=== PATIENT | female | born 1995 | race Caucasian/White ===

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

== ENCOUNTER → 2017-07-08 | Outpatient (CLI) | payer OTHER | END | disposition home or self-care (01) | LOC: C.LABSPEC 17:45 | PROVIDERS: ATTEND Physician Assistant | DX: Z01.419 Encounter for gynecological examination (general) (routine) without abnormal findings (principal) ==

== ENCOUNTER 2022-11-21 22:36 | Inpatient (IN) ==
[2022-11-21] MEDS ORDERED: OXYTOCIN 30 UNITS/500 ML BAG IV PRN (23:26)
[2022-11-21] MEDS ORDERED: LIDOCAINE 1% LOCAL 20 ML VIAL INFIL PRN (23:26)
[2022-11-21] MEDS: LACTATED RINGER'S 1,000 ML IV PRN (23:51)
[2022-11-22 00:13] LABS: Hematocrit (blood only) 34.7 % (37.0-47.0); Hemoglobin 11.8 g/dl (12.0-16.0); Mean Corpuscular Hemoglobin 30.1 pg (25.0-34.0); Mean Corpuscular Volume 88.5 fL (80.0-100.0); Platelet Count 211 K/uL (130-400); RDW Coefficient of Variation 12.7 % (11.5-14.5); RDW Standard Deviation 40.7 fL (36.4-46.3); Red Blood Count 3.92 M/uL (4.20-5.40); White Blood Count 9.07 K/ul (4.8-10.8)
[2022-11-22] MEDS ORDERED: OXYTOCIN 30 UNITS/500 ML BAG IV PRN ×2 (03:15→20:19)
[2022-11-22] MEDS: LACTATED RINGER'S 1,000 ML IV PRN ×3 (06:59→12:31)
[2022-11-22] MEDS ORDERED: LIDOCAINE 2%/EPINEPHRINE 1:200,000 20 ML PF ONE (07:18)
[2022-11-22] MEDS ORDERED: ePHEDrine sulfate 50 MG/ML AMP ONE (07:18)
[2022-11-22] MEDS ORDERED: SODIUM CHLORIDE 0.9% PF INJ 10 ML VIAL ONE (07:18)
[2022-11-22] MEDS ORDERED: fentaNYL citrate PF 100 MCG/2 ML VIAL ONE (07:18)
[2022-11-22] MEDS ORDERED: BUPIVACAINE 0.25% PF 30 ML VIAL ONE (07:18)
[2022-11-22] MEDS ORDERED: fentaNYL 2MCG/ML ROPIVACAINE 1.25MG/ML 100 ML BAG EPI ONE (07:19)
--- NOTE | 2022-11-22 07:40 | Anesthesiology Consultation ---
Date of Service November 22, 2022 Assessment & Plan Chart Review Chart Review: Acceptable Risk for Surgery, Patient NOT seen in Pre Admission Testing and Acceptable Risk for Labor Epidural Consults Requested none ASA ASA3 Proposed Anesthesia Anesthesia Type: Labor Epidural and CSE History Height/Weight Height: 5 ft 4 in Weight: 107.048 kg Allergies Allergy/AdvReac Type Severity Reaction Status Date / Time No Known Allergies Allergy Unknown Verified 11/20/22 14:00 Medications Home Medications Medication Instructions Recorded Confirmed Last Taken prenat.vits,pippa,trk-[id number] 1 tab PO DAILY 02/12/21 11/21/22 11/21/22 20:00 acetone (urine) test (Ketone Urine #50 ea 09/28/22 11/20/22 Unknown Test strips) blood sugar diagnostic (OneTouch #150 ea 09/28/22 11/20/22 Unknown Verio test strips) blood-glucose meter (OneTouch #1 ea 09/28/22 11/20/22 Unknown Verio Reflect Meter) lancets 33 gauge (OneTouch Delica #150 ea 09/28/22 11/20/22 Unknown Lancets) Breast Pump #1 ea 10/26/22 11/20/22 Unknown Active Medications Generic Name Dose Route Start Last Admin Trade Name Freq PRN Reason Stop Dose Admin Lactated Ringer's 1,000 mls @ 125 mls/hr 11/21/22 23:26 11/22/22 06:59 Lr IV 11/23/22 23:25 999 mls/hr .Q8H PRN Administration L&D Protocol Protocol Oxytocin 30 units in 500 mls @ 8 mls/hr 11/22/22 03:15 11/22/22 06:59 Pitocin IV 11/24/22 03:14 0.48 units/hr .Q24H PRN 8 mls/hr Labor Induction/Augmentation Titration Protocol 0.48 UNITS/HR Past Medical History Medical History Arm fracture 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 Infertility, female Conceived on clomid with current Lyme disease SAB (spontaneous ) x2 2020 Varicella vaccination Gestational DM;anemia;Morbid obesity;HLD;migraine H/A's Exercise / Class Metabolic Activity II 4-5 Yardwork/Stairs/Walk up hill Past Family History Family History Father Diabetes Hypercholesteremia Hypertension Mother Asthma Crohn's disease Denies family history of Ovarian cancer Prostate cancer Myocardial infarction Breast cancer Colorectal cancer Past Surgical History Surgical History History of tooth extraction WISDOM TEETH S/P colonoscopy Past Anesthesia History No Hx of Anesthesia Complications and No Family Hx of Anesthesia Complications History of PONV No Hx of PONV and No Hx of Motion Sickness Social History Smoking Status: Never smoker Do You Dip or Chew Tobacco: No Hx Alcohol Use: No Alcohol type: wine alcohol intake frequency: holidays/special occasions only Hx Substance Use: No Physical Exam Vital Signs Last Vital Signs Temp 36.5 C 11/22/22 07:26 Pulse 92 H 11/22/22 07:37 Resp 20 11/22/22 07:26 BP 130/79 11/22/22 07:26 Pulse Ox 100 11/22/22 07:37 Testing Laboratory Results 11/21/22 23:44 Blood Type B Positive 11/21/22 23:44 Antibody Screen NEGATIVE 11/21/22 23:44 11/21/22 23:46 POC Glucose 90
[2022-11-22] MEDS ORDERED: NALBUPHINE HCL INJ 10 MG/ML AMP IV PRN (08:45)
[2022-11-22] MEDS ORDERED: SODIUM CHLORIDE 0.9% PF INJ 10 ML VIAL EPI STA (08:45)
[2022-11-22] MEDS ORDERED: BUPIVACAINE 0.25% PF 30 ML VIAL EPI STA (08:45)
[2022-11-22] MEDS ORDERED: LIDOCAINE 2% MPF LOCAL 5 ML VIAL EPI PRN (08:45)
[2022-11-22] MEDS ORDERED: BUPIVACAINE 0.25% PF 30 ML VIAL EPI PRN (08:45)
[2022-11-22] MEDS ORDERED: ROPIVACAINE 0.5% PF 5 MG/ML 20 ML VIAL EPI PRN (08:45)
[2022-11-22] MEDS ORDERED: LIDOCAINE 2%/EPINEPHRINE 1:200,000 20 ML PF EPI STA (08:45)
[2022-11-22] MEDS ORDERED: diphenhydrAMINE 50 MG/ML VIAL IV PRN (08:45)
[2022-11-22] MEDS ORDERED: SODIUM CHLORIDE 0.9% PF INJ 10 ML VIAL EPI PRN (08:45)
[2022-11-22] MEDS ORDERED: fentaNYL citrate PF 100 MCG/2 ML VIAL EPI STA (08:45)
[2022-11-22] MEDS ORDERED: ePHEDrine sulfate 50 MG/ML AMP IV PRN (08:45)
[2022-11-22] MEDS ORDERED: NALOXONE HCL 0.4 MG/1 ML VIAL/CARP IV PRN (08:45)
[2022-11-22] MEDS ORDERED: NALOXONE HCL 1 MG in SODIUM CHLORIDE 0.9% 1000ML 1,000 ML IV PRN (08:45)
[2022-11-22] MEDS ORDERED: fentaNYL citrate PF 100 MCG/2 ML VIAL EPI PRN (08:45)
--- NOTE | 2022-11-22 09:18 | History & Physical Report ---
Date of Service November 22, 2022 Assessment & Plan (1) Encounter for supervision of normal in multigravida: Plan: Tanna is a 27-year-old G3, P0 currently at 30 weeks 3 days gestational age presents with premature spontaneous rupture of membranes. 1. Fetus Cat 1 2. Labor: Recommend Pitocin at admission. Patient declined but excepted later around 3am 3. GBS negative. 4. Vitals: WNL 5 A1gDM: Stable (2) Gestational diabetes mellitus (GDM) affecting , antepartum: (3) PROM (premature rupture of membranes): Admission and Anticipated Discharge Date Admission Date: November 21, 2022 History of Present Illness Primary Care Provider: Martha Renee MD Tanna is a 27-year-old G3, P0 presents with spontaneous rupture of membranes at 38 weeks 3 days gestational age. Reporting irregular contractions. Denies vaginal bleeding. Good movement. related complication FMHX Congenital Heart Defect * echo-[facility] 08/04/22-Normal ? Cleft Lip on Anatomy *MFM consult - no clelft lip noted MFM f/u US in 3-4 wks. GDM w/28wk glucola *Begin monthly Growth US's Obesity (BMI between 35-39 @ beginning of ) *Growth US @ 32 wks *Weekly NSTs @ 36wks OB Labs: Blood Type B Positive 05/08/22 Antibody Screen NEGATIVE 09/10/22 Hemoglobin 12.0 g/dl (12.0-16.0) 09/10/22 Hematocrit 35.5 % (37.0-47.0) L 09/10/22 Mean Corpuscular Volume 90.1 fL (80.0-100.0) 05/08/22 Platelet Count 282 K/uL (130-400) 05/08/22 Varicella-Zoster IgG Antibody >4000.00 index 11/14/21 Rubella IgG Antibody Immune (Immune) 05/08/22 Rapid Plasma Reagin Nonreactive (Nonreactive) 05/08/22 Hepatitis B Surface Antigen. NON-REACTIVE (NON-REACTIVE) 05/08/22 Hepatitis C Antibody (EIA) NON-REACTIVE (NON-REACTIVE) 05/08/22 HIV (1&2) Ag and Ab Confirmation NON-REACTIVE (NON-REACTIVE) 05/08/22 Glucose 1 Hour 50 gm Load 159 mg/dl (70-130) H 06/19/22 Maternal Serum Alpha Fetoprotein 55.4 ng/mL 07/17/22 OB Optional Labs: Chlamydia trachomatis RNA Not Detected (NotDetected) 05/08/22 Neisseria gonorrhoeae RNA Not Detected (NotDetected) 05/08/22 Thyroid Stimulating Hormone (TSH) 1.015 uIu/ml (0.300-4.500) 09/19/21 Alpha Fetoprotein Triple Screen SEE NOTE 07/17/22 Labs Reviewed: cfdna-low risk--mln Allergies Allergy/AdvReac Type Severity Reaction Status Date / Time No Known Allergies Allergy Unknown Verified 11/20/22 14:00 Home Medications Medication Instructions Recorded Confirmed Type prenat.vits,pippa,qvu-boyx-kfega 1 tab PO DAILY 02/12/21 11/21/22 History acetone (urine) test (Ketone Urine #50 ea 09/28/22 11/20/22 Rx Test strips) blood sugar diagnostic (OneTouch #150 ea 09/28/22 11/20/22 Rx Verio test strips) blood-glucose meter (OneTouch #1 ea 09/28/22 11/20/22 Rx Verio Reflect Meter) lancets 33 gauge (OneTouch Delica #150 ea 09/28/22 11/20/22 Rx Lancets) Breast Pump #1 ea 10/26/22 11/20/22 Rx Patient History Medical History Arm fracture 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 Infertility, female Conceived on clomid with current Lyme disease SAB (spontaneous ) x2 2020 Varicella vaccination Surgical History History of tooth extraction WISDOM TEETH S/P colonoscopy Family History Father Diabetes Hypercholesteremia Hypertension Mother Asthma Crohn's disease Denies family history of Ovarian cancer Prostate cancer Myocardial infarction Breast cancer Colorectal cancer Social History Smoking Status: Never smoker Second Hand Exposure: No; Do You Dip or Chew Tobacco: No; Hx Alcohol Use: No Hx Substance Use: No Preferred Language: Irish Communication Ability: Effective Visual Impairment: No Limitations Hearing Ability: Normal Cork Grinder Required: No Beliefs That Will Affect Care: None marital status: marital status details: Ramon Cuevas (22) [phone] Current Living Situation: Alone and Spouse Current Living Situation Comment: lives with spouse, Dogs and outside farm animals current occupational status: employed 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 Other Information That Helps Us Care for You: No Feels Safe at Home: Yes Safety Concerns: Feels Safe At This Time Childhood Exposure to Second-Hand Smoke: No Diet: regular Diet Comment: Counts calories caffeine: No Dental Care, Regularly: Yes Physical Activity Frequency: Daily Physical Activity Frequency Comment: 45 min, zoomba, cardio, weight lifting Seatbelt Use: always Sunscreen Use: Yes Assistive Devices: None Physical Exam Genitourinary: Manual OB Exam: + cervical dilation 1 cm, + cervical effacement 50%, + station high and + amniotic fluid (SROM) clear OB Exam Monitor Tracing: + external FHT monitor used, + external uterine monitor used, + category I and + normal FHT variability Exam per nurse at admission Results & Data Vital Signs (Past 12 Hours) Vital Signs Temp Pulse Resp BP Pulse Ox 11/22/22 09:05 72 97 11/22/22 09:00 72 97 11/22/22 08:55 112 H 100 11/22/22 08:54 96 H 128/63 93 11/22/22 08:52 99 H 126/64 11/22/22 08:50 88 126/58 L 97 11/22/22 08:48 75 132/61 11/22/22 08:45 71 98 11/22/22 08:46 64 140/66 11/22/22 08:44 75 97/53 L 11/22/22 08:42 85 95/48 L 11/22/22 08:40 95 H 97 11/22/22 08:41 96 H 113/50 L 11/22/22 08:35 101 H 98 11/22/22 08:33 50 L 184/128 H 11/22/22 08:30 104 H 98 11/22/22 08:25 86 97 11/22/22 08:20 113 H 99 11/22/22 08:18 102 H 137/82 11/22/22 08:15 103 H 99 11/22/22 08:13 114 H 160/96 H 11/22/22 08:10 105 H 96 11/22/22 08:08 96 H 140/79 11/22/22 08:05 98 H 99 11/22/22 08:03 96 H 137/81 11/22/22 08:00 91 H 99 11/22/22 07:58 88 129/70 11/22/22 07:55 87 99 11/22/22 07:50 94 H 100 11/22/22 07:42 75 98 11/22/22 07:37 92 H 100 11/22/22 07:32 84 97 11/22/22 07:26 36.5 C 72 20 130/79 11/22/22 07:13 95 H 133/84 11/22/22 06:26 84 115/72 11/22/22 05:15 36.8 C 11/22/22 05:27 75 117/71 11/22/22 04:26 79 109/55 L 11/22/22 03:30 20 11/22/22 03:30 20 11/22/22 03:26 74 100/57 L 11/22/22 02:46 36.8 C 70 18 110/58 L 11/22/22 01:29 36.9 C 11/21/22 23:22 90 122/84 11/21/22 22:50 36.9 C 18 Coding Level of Care Code None Diagnoses Encounter for supervision of normal in multigravida Z34.80 Gestational diabetes mellitus (GDM) affecting , antepartum O24.419 PROM (premature rupture of membranes) O42.90
[2022-11-22] MEDS: fentaNYL 2MCG/ML ROPIVACAINE 1.25MG/ML 100 ML BAG EPI PRN ×3 (12:42→18:26)
[2022-11-22] MEDS ORDERED: Nursing to Pharmacy Communication SCH (12:45)
[2022-11-22] MEDS ORDERED: ONDANSETRON INJ 2 MG/ML 2 ML VIAL IV PRN (16:31)
--- NOTE | 2022-11-22 16:37 | Labor Progress Brief Note ---
Date of Service November 22, 2022 Subjective Reason For Note: Routine Evaluation Assessment & Plan (1) Encounter for supervision of normal in multigravida: Plan: Tanna is a 27-year-old G3, P0 currently at 30 weeks 3 days gestational age presents with premature spontaneous rupture of membranes. 1. Fetus Cat 1 2. Labor: Continue Pitocin. 3. GBS negative. 4. Vitals: WNL 5 A1gDM: Stable (2) Gestational diabetes mellitus (GDM) affecting , antepartum: (3) PROM (premature rupture of membranes): Admission and Anticipated Discharge Date Admission Date: November 21, 2022 Physical Exam Genitourinary: Manual OB Exam: + cervical dilation (8.5), + cervical effacement 100% and + station 0 OB Exam Monitor Tracing: + external FHT monitor used, + external uterine monitor used, + category I and + normal FHT va riability Results & Data Vital Signs (Past 12 Hours) Vital Signs Temp Pulse Resp BP Pulse Ox 11/22/22 12:55 36.9 C 20 11/22/22 16:30 91 H 100 11/22/22 16:26 110 H 138/76 11/22/22 16:25 108 H 100 11/22/22 16:24 128 H 92 11/22/22 16:20 115 H 98 11/22/22 16:15 89 100 11/22/22 16:10 72 99 11/22/22 16:11 70 133/72 11/22/22 16:06 89 92 11/22/22 16:05 70 99 11/22/22 16:00 36.9 C 74 16 99 11/22/22 15:55 73 138/68 100 11/22/22 15:50 81 100 11/22/22 15:45 70 100 11/22/22 15:40 71 140/69 100 11/22/22 15:35 69 100 11/22/22 15:30 75 100 11/22/22 15:26 82 139/72 11/22/22 15:25 77 100 11/22/22 15:23 118 H 93 11/22/22 15:20 74 100 11/22/22 15:15 76 100 11/22/22 15:10 100 11/22/22 15:10 74 11/22/22 15:10 78 110/58 L 11/22/22 15:05 74 100 11/22/22 15:00 72 100 11/22/22 14:55 67 100 11/22/22 14:56 68 105/57 L 11/22/22 14:50 75 100 11/22/22 14:45 91 H 100 11/22/22 14:46 89 91 11/22/22 14:40 100 11/22/22 14:40 80 11/22/22 14:40 69 146/86 H 11/22/22 14:35 79 100 11/22/22 14:30 83 93 11/22/22 14:31 84 94 11/22/22 14:26 82 154/82 H 11/22/22 14:25 87 100 11/22/22 14:20 107 H 100 11/22/22 14:18 94 H 93 11/22/22 14:15 99 11/22/22 14:15 76 11/22/22 14:15 36.8 C 75 20 125/77 11/22/22 14:10 98 11/22/22 14:10 109 H 11/22/22 14:10 101 H 88 L 11/22/22 14:05 85 100 11/22/22 14:00 82 100 11/22/22 13:56 100 H 90 11/22/22 13:55 88 142/77 H 99 11/22/22 13:50 92 H 99 11/22/22 13:48 93 H 93 11/22/22 13:45 81 100 11/22/22 13:40 93 H 99 11/22/22 13:41 88 140/74 11/22/22 13:35 82 100 11/22/22 13:30 98 H 98 11/22/22 13:27 75 122/71 11/22/22 13:25 74 98 11/22/22 13:20 77 99 11/22/22 13:15 91 H 98 11/22/22 13:11 87 146/79 H 11/22/22 13:10 87 99 11/22/22 13:09 103 H 93 11/22/22 13:05 91 H 99 11/22/22 13:00 84 99 11/22/22 12:55 84 99 11/22/22 12:56 86 109/59 L 11/22/22 12:50 91 H 100 11/22/22 12:45 93 H 98 11/22/22 12:41 86 114/67 11/22/22 12:40 85 99 11/22/22 12:35 96 H 98 11/22/22 12:30 105 H 99 11/22/22 12:25 97 11/22/22 12:25 101 H 11/22/22 12:25 90 134/75 11/22/22 12:20 87 99 11/22/22 12:15 91 H 97 11/22/22 12:11 83 131/73 11/22/22 12:10 86 99 11/22/22 12:05 87 98 11/22/22 12:00 37.2 C 100 H 20 98 11/22/22 11:55 100 11/22/22 11:55 83 11/22/22 11:55 78 133/74 11/22/22 11:50 92 H 99 11/22/22 11:45 97 H 99 11/22/22 11:40 103 H 127/70 99 11/22/22 11:35 83 99 11/22/22 11:30 92 H 98 11/22/22 11:25 90 130/75 99 11/22/22 11:20 80 98 11/22/22 11:15 84 99 11/22/22 11:10 88 120/67 98 11/22/22 11:05 73 97 11/22/22 11:00 96 H 99 11/22/22 10:55 100 11/22/22 10:55 84 11/22/22 10:55 86 107/57 L 11/22/22 10:50 89 100 11/22/22 10:45 79 99 11/22/22 10:43 94 H 93 11/22/22 10:42 88 118/58 L 11/22/22 10:40 83 98 11/22/22 10:35 97 H 100 11/22/22 10:30 85 100 11/22/22 10:25 98 11/22/22 10:25 85 11/22/22 10:25 82 109/57 L 11/22/22 10:22 20 11/22/22 10:22 36.7 C 20 11/22/22 10:20 92 H 98 11/22/22 10:15 99 11/22/22 10:15 108 H 11/22/22 10:15 107 H 91 06/04/23 10:10 72 117/64 99 11/22/22 10:05 72 98 11/22/22 10:00 70 99 11/22/22 09:55 74 98 11/22/22 09:56 69 114/69 11/22/22 09:50 71 98 11/22/22 09:45 71 98 11/22/22 09:40 74 117/66 98 11/22/22 09:35 84 98 11/22/22 09:30 86 99 11/22/22 09:25 92 H 125/75 98 11/22/22 09:20 72 98 11/22/22 09:15 75 97 11/22/22 09:10 79 97 11/22/22 09:11 93 H 114/65 11/22/22 09:05 37 C 72 20 97 11/22/22 09:00 72 97 11/22/22 08:55 112 H 100 11/22/22 08:54 96 H 128/63 93 11/22/22 08:52 99 H 126/64 11/22/22 08:50 88 126/58 L 97 11/22/22 08:48 75 132/61 11/22/22 08:45 71 98 11/22/22 08:46 64 140/66 11/22/22 08:44 75 97/53 L 11/22/22 08:42 85 95/48 L 11/22/22 08:40 95 H 97 11/22/22 08:41 96 H 113/50 L 11/22/22 08:35 101 H 98 11/22/22 08:33 50 L 184/128 H 11/22/22 08:30 104 H 98 11/22/22 08:25 86 97 11/22/22 08:20 113 H 99 11/22/22 08:18 102 H 137/82 11/22/22 08:15 103 H 99 11/22/22 08:13 114 H 160/96 H 11/22/22 08:10 105 H 96 11/22/22 08:08 96 H 140/79 11/22/22 08:05 98 H 99 11/22/22 08:03 96 H 137/81 11/22/22 08:00 91 H 99 11/22/22 07:58 88 129/70 11/22/22 07:55 87 99 06/04/23 07:50 94 H 100 11/22/22 07:42 75 98 11/22/22 07:37 92 H 100 11/22/22 07:32 84 97 11/22/22 07:26 36.5 C 72 20 130/79 11/22/22 07:13 95 H 133/84 11/22/22 06:26 84 115/72 11/22/22 05:15 36.8 C 11/22/22 05:27 75 117/71 Coding Level of Care Code None Diagnoses Encounter for supervision of normal in multigravida Z34.80 Gestational diabetes mellitus (GDM) affecting , antepartum O24.419 PROM (premature rupture of membranes) O42.90
[2022-11-22] MEDS ORDERED: BENZOCAINE 20% AER SPR 82.5 GM CAN EXT PRN (20:19)
[2022-11-22] MEDS ORDERED: ACETAMINOPHEN 325 MG TAB PO PRN (20:19)
[2022-11-22] MEDS ORDERED: DIPHTHERIA/TETANUS/PERTUSSIS Vaccine (Tdap, Age 7+yrs) 0.5mL SYR/VL IM ONE (20:19)
[2022-11-22] MEDS ORDERED: HYDROCORTISONE ACETATE 25 MG SUPP PR PRN (20:19)
[2022-11-22] MEDS ORDERED: bisacodyL 10 MG SUPP PR PRN (20:19)
--- NOTE | 2022-11-22 21:02 | Anesthesia Procedure Note ---
Date of Service November 22, 2022 Anesthesia Post Epidural Note Vital Signs Vital Signs: Temp Pulse Resp BP Pulse Ox 37.2 C 129 H 20 144/81 H 93 11/22/22 18:10 11/22/22 20:44 11/22/22 18:10 11/22/22 20:44 11/22/22 20:05 Pain Intensity Abdomen: Pain Intensity: 4 Notes Mental Status: alert / awake / arousable and participated in evaluation Nausea / Vomiting: adequately controlled Pain: adequately controlled Airway Patency, RR, SpO2: stable & adequate BP & HR: stable & adequate Hydration State: stable & adequate Neuraxial Anesthesia: was administered and sensory block is resolving Anesthetic Complications: no major complications apparent and Pt Satisfied with anesthetic care Epidural: Removed without complications and With tip intact
[2022-11-22] MEDS: IBUPROFEN 600 MG TAB PO PRN (22:14)
[2022-11-22] MEDS: DOCUSATE SODIUM 100 MG CAP PO SCH (22:29)
[2022-11-23] MEDS: IBUPROFEN 600 MG TAB PO PRN ×4 (04:02→23:22)
[2022-11-23 05:57] LABS: Hematocrit (blood only) 27.1 % (37.0-47.0); Hemoglobin 9.3 g/dl (12.0-16.0)
--- NOTE | 2022-11-23 08:00 | Obstetrical Progress Note ---
Date of Service <Ge Brady - Last Filed: 11/23/22 08:02> November 23, 2022 Assessment & Plan <Ge Brady - Last Filed: 11/23/22 08:02> (1) Vaginal delivery: - Feels well today. Eating well, voiding well, ambulating well. - Pain well controlled with [ibuprofen 600mg Q4H PRN] - Routine care -- OOB, ambulation, diet progression as tolerated - After discharge will have 6 week follow-up with Dr. Smith. Day #:: 1 <Jordan Smith MD - Last Filed: 11/26/22 14:53> (1) Vaginal delivery: Subjective <Ge Brady - Last Filed: 11/23/22 08:02> Ambulation: ambulating normally Voiding: no voiding problems Passing Gas:: Yes Diet Tolerance:: regular diet Lochia:: Small Feeding Type:: breast feeding Current Pain Level(1-10): 3 Review of Systems Denies fever, chills, sweats Denies shortness of breath, difficulty breathing, chest pain, palpitations, chest pressure. Denies breast pain. Denies dysuria. Denies headache or changes in vision. Physical Exam <Ge Brady - Last Filed: 11/23/22 08:02> General: Alert, oriented. No acute distress. Cardiac: Regular rate and rhythm, no murmurs/rubs/gallops. Respiratory: Clear to auscultation bilaterally a/p, no wheezes/rales/rhonchi. No increased work of breathing. Symmetrical chest rise. No respiratory distress. Abdomen: Soft, nontender, nondistended. Bowel sounds present. Uterus: Uterine fundus firm, palpable 1 cm below umbilicus. Lower Extremities: No lower extremity edema or swelling. No deep calf pain. Branden's negative bilaterally. Results & Data <Ge Brady - Last Filed: 11/23/22 08:02> Vital Signs (Past 12 Hours) Vital Signs Temp Pulse Pulse Resp BP BP Pulse Ox 11/23/22 04:03 36.5 C 73 20 120/84 94 11/22/22 23:00 36.6 C 96 H 20 123/78 98 11/22/22 21:48 117 H 130/82 11/22/22 21:28 126 H 122/69 11/22/22 21:19 108 H 118/67 11/22/22 20:44 129 H 144/81 H 11/22/22 20:31 100 H 140/75 11/22/22 20:14 125 H 129/61 11/22/22 20:04 106 H 100 11/22/22 20:05 107 H 93 O2 Del Method 11/23/22 04:03 Room Air 11/22/22 23:00 Room Air 11/22/22 21:48 11/22/22 21:28 11/22/22 21:19 11/22/22 20:44 11/22/22 20:31 11/22/22 20:14 11/22/22 20:04 11/22/22 20:05 Laboratory Results 11/23/22 05:42 <Jordan Smith MD - Last Filed: 11/26/22 14:53> Co-Signing Physician Notes Patient seen with resident and agree with the above findings and plan. Resident Activity Tracking <Ge Brady DO - Last Filed: 11/23/22 08:02> Resident Involvement: Resident Care Provided Care Provided: OB Delivery
[2022-11-23] MEDS: DOCUSATE SODIUM 100 MG CAP PO SCH ×2 (08:04→19:46)
[2022-11-23] MEDS: PRENATAL VITAMIN 1 TAB PO SCH (08:04)
[2022-11-23] MEDS: FERROUS SULFATE 325 MG TAB PO SCH (08:07)
--- NOTE | 2022-11-23 08:27 | Delivery Summary ---
DATE OF SERVICE: 11/22/2022. PROCEDURE: Normal spontaneous vaginal delivery and second-degree perineal laceration repair. SURGEON: Jordan Smith MD. PREOPERATIVE DIAGNOSES: 1. Single intrauterine at 38 weeks 3 days gestational age. 2. Spontaneous rupture of membranes. 3. A1 gestational diabetes. 4. BMI greater than 35. POSTOPERATIVE DIAGNOSES: 1. Single intrauterine at 38 weeks 3 days gestational age. 2. Spontaneous rupture of membranes. 3. A1 gestational diabetes. 4. BMI greater than 35. 5. Status post procedure. ESTIMATED BLOOD LOSS: 300 mL DRAINS: Straight cath at the completion of the case. URINE OUTPUT: Per straight cath. COMPLICATIONS: None. FINDINGS: Viable male with weight of 6 pounds 13 ounces and Apgars of 8 and 9 at one and fiv e minutes respectively. DESCRIPTION OF PROCEDURE: The patient progressed to 10 cm dilated, 100% effaced, positive 2 station, pushed over intact perineu m with epidural anesthesia and delivered a viable male with weight and Apgars as noted above. Head of the delivered in CINDI position, restituted to left transverse. No nuchal cord was n oted. Body and shoulders quickly followed. was noted to be vigorous soon after delivery and 1 minute delayed cord clamping was initiated. Cord was then double clamped and cut. remain ed on maternal abdomen. Cord blood was obtained. Attention was then turned to delivery of placenta, which delivered intact, 3-vessel cord, gentle cord traction. On inspection of the perineum, vagina, cervix, there was noted to be a second-degree perineal laceration, which was repaired with 3-0 Vicry l in a standard crown stitch. Needle, sponge, and instrument counts were correct at the completion o f the case. Both mother and stable in the immediate post-delivery period. Job ID: [id number]
[2022-11-23] MEDS ORDERED: bisacodyL 5 MG TABEC PO SCH (20:00)
--- NOTE | 2022-11-24 06:55 | Obstetrical Progress Note ---
Date of Service <Ge Brady DO - Last Filed: 11/24/22 06:55> November 24, 2022 Assessment & Plan <Ge Brady DO - Last Filed: 11/24/22 06:55> (1) Vaginal delivery: - Feels well today. Eating well, voiding well, ambulating well. - Pain well controlled with ibuprofen 600mg Q4H PRN - Routine care -- OOB, ambulation, diet progression as tolerated - After discharge will have 6 week follow-up with Dr. Smith. - Will D/C today. Day #:: 2 <Nicki Aguilar MD - Last Filed: 11/24/22 06:59> (1) Vaginal delivery: Subjective <Ge Brady DO - Last Filed: 11/24/22 06:55> Ambulation: ambulating normally Voiding: no voiding problems Passing Gas:: Yes Diet Tolerance:: regular diet Lochia:: Small Feeding Type:: bottle feeding Current Pain Level(1-10): 0 Review of Systems Denies fever, chills, sweats Denies shortness of breath, difficulty breathing, chest pain, palpitations, chest pressure. Denies breast pain. Denies dysuria. Denies headache or changes in vision. Physical Exam <Ge Brady DO - Last Filed: 11/24/22 06:55> General: Alert, oriented. No acute distress. Cardiac: Regular rate and rhythm, no murmurs/rubs/gallops. Respiratory: Clear to auscultation bilaterally a/p, no wheezes/rales/rhonchi. No increased work of breathing. Symmetrical chest rise. No respiratory distress. Abdomen: Soft, nontender, nondistended. Bowel sounds present. Uterus: Uterine fundus firm, palpable 2 cm below umbilicus. Lower Extremities: No lower extremity edema or swelling. No deep calf pain. Branden's negative bilaterally. Results & Data <Ge Brady DO - Last Filed: 11/24/22 06:55> Vital Signs (Past 12 Hours) Vital Signs Temp Pulse Resp BP Pulse Ox O2 Del Method 11/24/22 03:40 36.6 C 82 18 110/74 99 Room Air 11/23/22 19:47 36.8 C 83 18 108/73 99 Room Air <Nicki Aguilar MD - Last Filed: 11/24/22 06:59> Co-Signing Physician Notes Resident Physician Supervision Note: I interviewed and examined the patient. Discussed with Dr. Brady and agree with findings and plan as documented in the note. Any exceptions or clarifications are listed here: PP2 s/p , doing well. VSS, exam benign and wnl. Stable for d/c home today Documented By: Nicki Aguilar MD Resident Activity Tracking <Ge Brady DO - Last Filed: 11/24/22 06:55> Resident Involvement: Resident Care Provided Care Provided: OB Delivery
[2022-11-24] MEDS: FERROUS SULFATE 325 MG TAB PO SCH (08:22)
[2022-11-24] MEDS: DOCUSATE SODIUM 100 MG CAP PO SCH (08:22)
[2022-11-24] MEDS: PRENATAL VITAMIN 1 TAB PO SCH (08:22)
[2022-11-24] MEDS: IBUPROFEN 600 MG TAB PO PRN (08:23)
== END 2022-11-24 14:00 | disposition home or self-care (01) | DRG 807 ==
LOC: OPB 22:36 → 4S1 22:38 → 4E2 11-22 22:59
DX: Z3A.38 38 weeks gestation of pregnancy; O24.429 Gestational diabetes mellitus in childbirth, unspecified control; Z14.8 Genetic carrier of other disease; O42.02 Full-term premature rupture of membranes, onset of labor within 24 hours of rupture; Z87.59 Personal history of other complications of pregnancy, childbirth and the puerperium; O99.214 Obesity complicating childbirth; O70.1 Second degree perineal laceration during delivery; Z20.822 Contact with and (suspected) exposure to COVID-19; Z37.0 Single live birth